=== PATIENT | female | born 1960 | race African-American/Black ===

== ENCOUNTER 2016-05-06 11:28 | Inpatient (IN) | payer OTHER ==
--- NOTE | ~2016-05-06 | EKG ---
PATIENT: ROWAN SALGUERO UNIT #: [id number] Ventricular Rate: 99 BPM Atrial Rate: 99 BPM P-R Interval: 164 ms QRS Duration: 88 ms Q-T Interval: 382 ms QTC Calculation(Bezet): 490 ms P [place]: 23 degrees Calculated R [place]: 138 degrees Calculated T [place]: -18 degrees Diagnosis Line: Normal sinus rhythm Diagnosis Line: Right axis deviation Diagnosis Line: Voltage criteria for left ventricular hypertrophy Diagnosis Line: Cannot rule out Lateral infarct Diagnosis Line: T wave abnormality, consider inferior ischemia Diagnosis Line: T wave abnormality, consider anterior ischemia Diagnosis Line: Abnormal ECG Diagnosis Line: When compared with ECG of 07-MAY-2016 06:35, Diagnosis Line: Premature ventricular complexes are no longer Diagnosis Line: Present Diagnosis Line: Confirmed by CHASE JOSHI MD ([id number]) on 05/14/2016 Diagnosis Line: 4:43:26 AM INTERPRETING MD: MADELYN GRESHAM
--- NOTE | ~2016-05-06 | DS ---
Unit #: [id number] #: [id number] Patient: ROWAN SALGUERO [id number] [facility]. [place] [id number] [facility]. [place], [place] [address] [id number] I MR#: [id number] NAME: ROWAN SALGUERO ROOM: 569 Age: 55 Sex: F Admission Date: 05/06/2016 : 1960 Discharge Date: 05/15/2016 Attending Physician: Jessica Rincon M.D. DISCHARGE SUMMARY DISCHARGE DIAGNOSES Include: 1. Hypertension. 2. Anterior wall ischemia. 3. Severely reduced left ventricular function of 15% to 20%. 4. Acute on chronic systolic heart failure. 5. History of lymphoma and obesity. HOSPITAL COURSE This is a 55-year-old patient who was admitted for wheezing, shortness of breath, and chest tightness. She was found to have acute diastolic heart failure, was diuresed, and had a Lexiscan Cardiolite stress test and a 2D echo. Her stress test was abnormal. Her fluid status was stabilized and then she proceeded with a left heart catheterization. While hospitalized, she had no other consults done. Cardiology followed her. Her EF was found to be 15%, but she did have normal coronaries and no mitral regurgitation or aortic regurgitation. Left heart catheterization dated 05/13/2016, which was performed by Dr. Florez. For her acute on chronic systolic heart failure, she was started on Coreg. Fluid restrictions, daily labs, and daily weights. She was also put on a short course of dobutamine and IV diuretics. DIAGNOSTIC STUDIES IMAGING STUDIES: Include a left heart catheterization, which showed a reduced EF of 15%, normal coronaries, no mitral regurgitation or aortic regurgitation. She had a 2D echo on 05/07/2016, which did indicate that she had [id number] mitral regurgitation, moderate tricuspid regurgitation, pulmonic valvular regurgitation which was mild, RVSP was 51 mmHg, severely reduced systolic function, and LVEF was 10% to 15%. There was also severe global hypokinesis noted in the left ventricle. She had a chest x-ray, single view, on 05/06/2016, which did show [id number] cardiomegaly persistent and slightly increased interstitial infiltrates in the right upper and lower lung. No effusion or dense consolidation was seen and left lung remained well aerated. Repeat chest x-ray, two view, on 05/09/2016 showed improvement of infiltrates in the right lung, persistent cardiomegaly, and trace right effusion. EKG on 05/13/2016 showed normal sinus rhythm with T-wave inversions in both anterior leads and inferior leads. LABORATORY RESULTS: Include sodium 135, potassium 3.8, chloride 99, CO2 Unit #: [id number] #: [id number] Patient: ROWAN SALGUERO of 28, BUN 21, creatinine 0.6, and glucose 93. Magnesium was 2.0. Cholesterol was found to be 146, triglycerides 72, LDL 113, and HDL 19. BNP was 774. Troponins were less than 0.03 x2. INR was 1. WBC 6.7, hemoglobin 14.2, hematocrit 44.4, and platelet count 189. DISCHARGE MEDICATIONS Include Entresto 24/26 mg tablets b.i.d., spironolactone 12.5 mg b.i.d., potassium chloride 20 mEq b.i.d., Coreg 3.125 mg b.i.d., Lasix 40 mg p.o. b.i.d. with an additional 40 mg dose of Lasix if she continues to be short of breath or have any lower extremity swelling, and aspirin 81 daily. Prescriptions were provided for the following: Coreg 3.125 mg b.i.d.; spironolactone 25 mg half tablet orally daily, dispensed 30 tablets; and Entresto 24/26 mg 1 p.o. b.i.d., dispensed 60 tablets. She will be discharged home in stable condition. She was instructed to follow a low-salt heart healthy diet and get plenty of exercise to help with her weight loss. Prescriptions were provided as indicated above. She will need to follow up with Dr. Rincon and appointment has been made for her in 6 weeks. She will need an elective AICD at sometime in the near future and Dr. Rincon has written for a LifeVest when she gets home. Education was provided on medication compliance to take an extra dose of Lasix if she experiences any shortness of breath or swelling to call the office after 2 days of taking an extra dose of Lasix. Dictated by... Robyn [place], BUNG DROPPERShay Porras TD: 05/16/2016 13:27 JOB #: [id number] DISCHARGE SUMMARY Page 1 of 1 X X DISCHARGE SUMMARY
--- NOTE | ~2016-05-06 | CR63 ---
[facility] A Service of [facility] & [facility] RADIOLOGY TEXT RESULTS PATIENT: ROWAN SALGUERO LOCATION: [facility] 569-01 : 59 UNIT #: [id number] AGE: [address]: Jessica Rincon MD SEX: F ORDER DR: [id number] [facility] [address] [facility]. [place], [place] [address] [id number] I MR#: [id number] #: [id number] NAME: ROWAN SALGUERO : 1960 SEX: F STUDY DATE/TIME: 05/09/2016 9:25 UNIT: [facility] ROOM: [facility] STUDY DESCRIPTION: CR Chest 2 View Attending Physician: Jessica Rincon M.D. Ordering Physician: Love Ang A.P.R.N. Primary Care Physician: No Primary Care Physician MEDICAL IMAGING REPORT This report is preliminary unless electronic signature is present EXAM Chest 2 views 05/09/2016 INDICATIONS 55-year-old female with shortness of air that began today. History of lymphoma diagnosed in 2014. Hypertension. Cough and congestion. TECHNIQUE 2 views of the chest compared with 05/06/2016 FINDINGS Eventration or elevation of the right hemidiaphragm unchanged. The heart is enlarged but stable. Interstitial and alveolar opacities in the right lung demonstrate interval improvement compared with the prior study. No new consolidation, effusion or pneumothorax on either side. Probable trace right effusion unchanged. IMPRESSION 1. Improvement of infiltrates in the right lung. Persistent cardiomegaly and trace right effusion. Dictated by... Damon Madrigal M.D. THIS IS AN ELECTRONICALLY VERIFIED REPORT Damon Madrigal M.D. at 05/09/2016 3:04 PM ORLIN/aurora TD: 05/09/2016 14:36 JOB #: [id number] MEDICAL IMAGING REPORT COPY
--- NOTE | ~2016-05-06 | EKG ---
PATIENT: ROWAN SALGUERO UNIT #: [id number] Ventricular Rate: 85 BPM Atrial Rate: 85 BPM P-R Interval: 178 ms QRS Duration: 92 ms Q-T Interval: 424 ms QTC Calculation(Bezet): 504 ms P [place]: 44 degrees Calculated R [place]: 39 degrees Calculated T [place]: -39 degrees Diagnosis Line: Sinus rhythm with occasional Premature ventricular Diagnosis Line: complexes Diagnosis Line: Nonspecific T wave abnormality Diagnosis Line: Prolonged QT Diagnosis Line: Abnormal ECG Diagnosis Line: When compared with ECG of 06-MAY-2016 11:18, Diagnosis Line: Premature ventricular complexes are now Present Diagnosis Line: Minimal criteria for Anterior infarct are no Diagnosis Line: longer Present Diagnosis Line: Nonspecific T wave abnormality, improved in Diagnosis Line: Lateral leads Diagnosis Line: QT has lengthened Diagnosis Line: Confirmed by CHASE JOSHI MD ([id number]) on 05/07/2016 Diagnosis Line: 7:33:00 PM INTERPRETING MD: MADELYN GRESHAM
--- NOTE | ~2016-05-06 | HP ---
Unit #: [id number] #: [id number] Patient: ROWAN SALGUERO [id number] [facility]. [address] [place], [place] [address] [id number] I MR#: [id number] NAME: ROWAN SALGUERO ROOM: 569 Age: 55 Sex: F Admission Date: 05/06/2016 : 1960 Attending Physician: Jessica Rincon M.D. Primary Care Physician: No Primary Care Physician HISTORY AND PHYSICAL HISTORY OF PRESENT ILLNESS This is a 55-year-old -Tongan female purposely known to Dr. Goodman with a past medical history of hypertension not currently on medications. Chronic diastolic congestive heart failure as noted per previous documentation 01/2016. Lymphoma status post chemotherapy at the age of 28 and obesity with a BMI of 40. The patient denies hyperlipidemia, diabetes mellitus or myocardial infarction. She is a lifetime nonsmoker. There is no family history of ischemic heart disease. She presented to the emergency department from her primary care office with complaints of wheezing and shortness of breath. Her shortness of breath has been presence over the last couple of months. She was seen in our office for evaluation. Over the past week she was given a prescription for Lasix but despite this her shortness of breath has continued. She also admits to PND and lower extremity edema. She states the shortness of breath is at rest and exertion. During exertion she does have some mid sternal heaviness. She had chest pain described as heaviness. There is no radiation to the neck, jaw, shoulder or arms. There are no associated symptoms of diaphoresis, nausea, or vomiting. The pain resolves with rest. She denies any dizziness, palpitations or syncope. In the emergency department her temperature was 97.4, pulse 114, respirations 18, blood pressure 148/87, O2 saturation 98% on room air. Initial labs revealed a BNP of 1,465. Renal function was normal. Potassium was low at 3.1. White blood cell count was normal. Troponin was negative x2 sets. EKG revealed sinus rhythm with poor R wave progression into her leads. Chest x-ray revealed some vascular congestion. She was given 40 mg of IV Lasix. PAST MEDICAL HISTORY 1. Chronic diastolic congestive heart failure per documentation 01/2016. 2. Denies previous stress test or cardiac catheterization. 3. Cardiomegaly. 4. Hypertension. 5. Obesity with a BMI of 40. 6. Lymphoma, status post chemotherapy at age 28. 7. Nonsmoker. PAST SURGICAL HISTORY Mediport with removal. MEDICATIONS Furosemide 40 mg p.o. b.i.d.; potassium chloride 20 mEq p.o. daily. Unit #: [id number] #: [id number] Patient: ROWAN SALGUERO ALLERGIES No known drug allergies. SOCIAL HISTORY The patient lives in a private residence. She had a part-time job. She is a lifetime nonsmoker. There are no reports of alcohol or illicit drug use. FAMILY HISTORY Noncontributory for heart disease. REVIEW OF SYSTEMS Twelve point review of systems negative except for details noted above in HPI. The patient admits to some weight loss but is unsure of the amount. She has had some chills but no fever. She admits to a cough, which is nonproductive. PHYSICAL EXAMINATION VITAL SIGNS: Temperature 97.4, pulse 93, blood pressure 159/101. CONSTITUTIONAL: This is a 55-year-old -Tongan female in no acute distress. SKIN: Warm and dry. NECK: Supple. Positive jugular venous distention. No hepatojugular reflux. Normal carotid upstrokes. No carotid bruits auscultated. HEART: S1 and S2. Regular rate and rhythm. No murmurs, rubs or gallops. LUNGS: Bilateral breath sounds of rales in the bases. Respirations even and unlabored. No rhonchi or wheezes. ABDOMEN: Soft, nontender, nondistended. Positive bowel sounds auscultated x4 quadrants. No ascites noted. EXTREMITIES: Bilateral extremities have +2 pitting edema. DP and PT pulses 2+. Capillary refill after three seconds. DIAGNOSTIC STUDIES LABORATORY STUDIES: Blood cell count 5.6, hemoglobin 11.6, hematocrit 36.6, platelets 132. Sodium 139, potassium 3.4, chloride 97, CO2 30, BUN 11, creatinine 0.9, glucose 95, albumin 3.4, AST 49, ALT 31, alk phos 90, BNP 1,465, INR 1.2. Troponin 0.05 and 0.05. IMAGING STUDIES: Chest x-ray reveals vascular congestion and cardiomegaly. CARDIOVASCULAR: Electrocardiogram reveals sinus tachycardia with a ventricular rate of 109 BPM. Low voltage QRS. Nonspecific ST-T wave changes. Poor R wave progression in anterior leads. QTC 401 msec. IMPRESSION 1. Acute on chronic congestive heart failure. 2D echocardiogram pending. 2. Cardiomegaly. 3. History of lymphoma status post chemotherapy. 4. Hypertension, uncontrolled. 5. Obesity with a BMI of 40. 6. Hyperkalemia. 7. Mild anemia. 8. Mild thrombocytopenia. 9. Transaminitis. Unit #: [id number] #: [id number] Patient: ROWAN SALGUERO PLAN 1. The patient presented to the hospital with complaints of shortness of breath and wheezing. She was admitted for acute on chronic congestive heart failure. 2. 2D echocardiogram with Doppler has been ordered to assess LV function and bowels. 3. The patient has been started on IV Bumex and potassium supplements. 4. Her blood pressure is uncontrolled. She will be restarted on Coreg and Cozaar with parameters. 5. She does complain of intermittent chest pain with exertion. Cardiac enzymes are negative. 6. Will trend cardiac enzymes and EKG. 7. Will start aspirin and check fasting lipid profile. 8. The patient will need an ischemic workup once she is diuresed. Dictated by Joanna Meyer APRN for Shay Sanchez TD: 05/07/2016 10:28 JOB #: [id number] CC: [facility] HISTORY AND PHYSICAL X X HISTORY AND PHYSICAL
--- NOTE | ~2016-05-06 | EKG ---
PATIENT: ROWAN SALGUERO UNIT #: [id number] Ventricular Rate: 109 BPM Atrial Rate: 109 BPM P-R Interval: 174 ms QRS Duration: 86 ms Q-T Interval: 298 ms QTC Calculation(Bezet): 401 ms P [place]: 16 degrees Calculated R [place]: 70 degrees Calculated T [place]: -29 degrees Diagnosis Line: Sinus tachycardia Diagnosis Line: Low voltage QRS Diagnosis Line: Cannot rule out Anterior infarct (cited on or Diagnosis Line: before 06-MAY-2016) Diagnosis Line: Abnormal ECG Diagnosis Line: When compared with ECG of 03-FEB-2016 06:27, Diagnosis Line: QRS voltage has decreased Diagnosis Line: Nonspecific T wave abnormality, worse in Lateral Diagnosis Line: leads Diagnosis Line: QT has shortened Diagnosis Line: Confirmed by OMAR CHAN MD ([id number]) on Diagnosis Line: 05/06/2016 3:28:31 PM INTERPRETING MD: ROCIO GRESHAM
--- NOTE | ~2016-05-06 | TH ---
Unit #: [id number] #: [id number] Patient: ROWAN SALGUERO [id number] [address] [address] [id number] I MR#: [id number] NAME: ROWAN SALGUERO : 1960 SEX: F STUDY DATE/TIME: 05/07/2016 UNIT: [facility] ROOM: 569 STUDY DESCRIPTION: Lexiscan stress test - Nuclear Attending Physician: Jessica Rincon M.D. Primary Care Physician: No Primary Care Physician CARDIOLOGY REPORT PROCEDURE PERFORMED Lexiscan Cardiolite stress test - Nuclear portion. PROCEDURE Using technetium 99m-labeled Cardiolite, rest and stress SPECT images were obtained. Multiple SPECT images were obtained in various views, including horizontal and vertical long axis and short axis views of the left ventricle. Images were obtained by gated SPECT method. The patient was administered 10.69 mCi of Cardiolite at rest. The patient was administered 29.5 mCi of Cardiolite after Lexiscan infusion was completed. On the stress images, there is a medium sized area of severely decreased tracer uptake activity involving the anterior wall. The rest images show normal perfusion. Comparing the rest and stress images, there is suspicion for significant stress-induced ischemia involving the anterior wall of the left ventricle. The left ventricular ejection fraction is calculated to be 31%. There is severe global hypokinesis seen. The left ventricular cavity is moderately to severely dilated, both at rest and post stress. CONCLUSION 1. Suspicion for significant ischemia involving the anterior wall of the left ventricle. 2. The left ventricular ejection fraction is calculated to be 31%. 3. There is severe global hypokinesis noted. 4. The left ventricular cavity is moderately to severely dilated, both at rest and post stress. 5. Very abnormal Lexiscan Cardiolite stress test suspicious for severe cardiomyopathy and ischemia involving the LAD territory or multivessel disease. Dictated by... Shay Sanchez/romain TD: 05/08/2016 08:03 JOB #: [id number] Unit #: [id number] #: [id number] Patient: ROWAN SALGUERO CARDIOLOGY REPORT X Jessica Rincon MD <ELECTRONICALLY SIGNED> 09/14/16 [facility] CARDIOLOGY REPORT
--- NOTE | ~2016-05-06 | ST ---
Unit #: [id number] #: [id number] Patient: ROWAN SALGUERO [id number] [address] [address] [id number] I MR#: [id number] NAME: ROWAN SALGUERO : 1960 SEX: F STUDY DATE/TIME: 05/07/2016 UNIT: [facility] ROOM: 569 STUDY DESCRIPTION: Stress Test Attending Physician: Jessica Rincon M.D. Primary Care Physician: No Primary Care Physician CARDIOLOGY REPORT REASON FOR EXAM Shortness of breath and congestive heart failure. DESCRIPTION Baseline EKG shows normal sinus rhythm, rate of 100 beats per minute. Low voltage QRS. Cannot rule out anterior infarct. Nonspecific T wave abnormality. 0.4 mg of Lexiscan was injected per protocol followed by Cardiolite. During the test, the patient denied any complaints of chest pain. She had some mild shortness of breath but essentially no other symptoms. No ST or T wave abnormalities noted during the infusion. There were no arrhythmias noted during the infusion. The test was stopped secondary to protocol completion. IMPRESSION 1. Negative EKG portion of Lexiscan Cardiolite. 2. No ST or T wave changes occurred during the infusion suggestive of ischemia. 3. Mild shortness of breath, otherwise no symptoms reported during the infusion, thus, reported in the recovery period. 4. No arrhythmias were noted. 5. Please correlate with nuclear imaging. Dictated by... Anh LopezRJuaniNJuani for Jessica Rincon M.D. LMW/df TD: 05/07/2016 13:23 JOB #: [id number] Unit #: [id number] #: [id number] Patient: ROWAN SALGUERO CARDIOLOGY REPORT X Love Ang APRN CARDIOLOGY REPORT
--- NOTE | ~2016-05-06 | CR72 ---
[facility] A Service of [facility] & [facility] RADIOLOGY TEXT RESULTS PATIENT: ROWAN SALGUERO [facility] [id number] : [birth year] UNIT #: [id number] AGE: [address]: Jessica Rincon MD SEX: F ORDER DR: [id number] [facility] [address] [facility]. [place], [place] [address] [id number] E MR#: [id number] Acc #: [id number] NAME: ROWAN SALGUERO : 1960 SEX: F STUDY DATE/TIME: 05/06/2016 11:16 UNIT: [facility] ROOM: STUDY DESCRIPTION: CR Chest Single View Portable Attending Physician: Myra Baltazar M.D. Ordering Physician: Myra Baltazar M.D. Primary Care Physician: Primary Care Physician No MEDICAL IMAGING REPORT This report is preliminary unless electronic signature is present EXAM Portable chest 1-view, 05/06/2016 COMPARISON 02/03/2016 HISTORY Short of air, cough and congestion for 1 week. FINDINGS Re-demonstrated mild to moderate cardiomegaly. Persistent and slightly increased interstitial infiltrate in the right upper and lower lung. No effusion or dense consolidation. Left lung remains well aerated. Dictated by... Clayton Estrada M.D. THIS IS AN ELECTRONICALLY VERIFIED REPORT Clayton Estrada M.D. at 05/06/2016 5:03 PM ROXANN/mila TD: 05/06/2016 13:34 JOB #: [id number] MEDICAL IMAGING REPORT COPY
[2016-05-06 11:34] LABS: BASOPHIL% 0.6 % (0-2.5); EOSINOPHIL# 0.1 X10e3 (0-0.7); EOSINOPHIL% 1.9 % (0.0-7.0); HEMATOCRIT 36.6 % (35.0-45.0); HEMOGLOBIN 11.6 gm/dL (12.0-16.0); LYMPHOCYTE# 1.5 X10e3 (1.0-3.5); LYMPHOCYTE% 26.3 % (17.0-45.0); MEAN CELL VOLUME 84.3 FL (83-96); MEAN CORPUSCULAR HEMOGLOBIN 26.8 PG (28-34); MEAN CORPUSCULAR HGB CONC 31.7 g/dL (30-36); MEAN PLATELET VOLUME 10.7 FL (6.5-11.5); MONOCYTE# 0.4 X10e3 (0-1.0); MONOCYTE% 6.6 % (3.0-12.0); NEUTROPHIL# 3.6 X10e3 (1.5-7.1); NEUTROPHIL% 64.6 % (40-75); PLATELET COUNT 132 X10e3 (140-420); RED BLOOD COUNT 4.34 X10e (3.90-5.30); RED CELL DISTRIBUTION WIDTH 17.5 % (11.0-15.5); WHITE BLOOD COUNT 5.6 X10e3 (4.0-10.5)
[2016-05-06 11:35] LABS: DIFF IND NO
[2016-05-06 11:55] LABS: INR 1.2; PROTHROMBIN TIME (PATIENT) 12.5 SECONDS (9.6-11.5)
[2016-05-06 12:04] LABS: ALBUMIN SERUM 3.4 g/dL (3.5-5.0); ALKALINE PHOSPHATASE 90 U/L (32-92); ALT (SGPT) 31 U/L (10-40); AST (SGOT) 49 U/L (10-42); BILIRUBIN, DIRECT 0.6 mg/dL (0.0-0.2); BILIRUBIN,INDIRECT 1.5 mg/dL (0.0-0.9); BILIRUBIN,TOTAL 2.1 mg/dL (0.2-2.0); BLOOD UREA NITROGEN 11 mg/dL (9-23); BUN/CREATININE RATIO 12.22; CALCIUM SERUM 8.2 mg/dL (8.4-10.2); CARBON DIOXIDE 30 mmol/L (22-31); CHLORIDE 97 mmol/L (100-111); CREATININE SERUM 0.9 mg/dL (0.6-1.4); GLOM FILT RATE Estimated ABOVE60 mL/min (>60); GLUCOSE FASTING 95 mg/dL (70-110); POTASSIUM 3.1 mmol/L (3.5-5.1); PROTEIN TOTAL SERUM 6.6 g/dL (6.0-8.3); SODIUM 139 mmol/L (135-145)
[2016-05-06 12:27] LABS: POC - CKMB 3.5 ng/mL (0.0-7.9); POC - TROPONIN <0.05 ng/mL (<=0.05)
[2016-05-06 13:30] LABS: POC - TROPONIN <0.05 ng/mL (<=0.05)
[2016-05-06] MEDS ORDERED: FUROSEMIDE40 MG PO (13:31)
[2016-05-06] MEDS ORDERED: POTASSIUM20 MEQ/15 PO (13:32)
[2016-05-06 22:18] LABS: %MB 4.3 % (0.0-4.0); MB 6.8 ng/ml
[2016-05-07 02:09] LABS: %MB 4.5 % (0.0-4.0); MB 6.5 ng/ml
[2016-05-07 09:17] LABS: HEMATOCRIT 37.5 % (35.0-45.0); HEMOGLOBIN 11.8 gm/dL (12.0-16.0); MEAN CORPUSCULAR HEMOGLOBIN 26.8 PG (28-34); MEAN CORPUSCULAR HGB CONC 31.5 g/dL (30-36); MEAN PLATELET VOLUME 11.2 FL (6.5-11.5); RED BLOOD COUNT 4.41 X10e (3.90-5.30); RED CELL DISTRIBUTION WIDTH 17.2 % (11.0-15.5); WHITE BLOOD COUNT 5.2 X10e3 (4.0-10.5)
[2016-05-07 10:39] LABS: BLOOD UREA NITROGEN 11 mg/dL (9-23); BUN/CREATININE RATIO 13.75; CALCIUM SERUM 8.1 mg/dL (8.4-10.2); CARBON DIOXIDE 31 mmol/L (22-31); CHLORIDE 101 mmol/L (100-111); CHOLESTEROL 146 mg/dL (0-200); CREATININE SERUM 0.8 mg/dL (0.6-1.4); GLOM FILT RATE Estimated ABOVE60 mL/min (>60); GLUCOSE FASTING 85 mg/dL (70-110); HDL CHOLESTEROL 19 mg/dL (35-95); LDL CHOLESTEROL 113 mg/dL (-130); LDL/HDL RATIO 6 RATIO (0-4); MAGNESIUM 1.5 mg/dL (1.6-3.0); POTASSIUM 3.7 mmol/L (3.5-5.1); SODIUM 141 mmol/L (135-145); TRIGLYCERIDES 72 mg/dL (10-160)
[2016-05-08 08:40] LABS: BLOOD UREA NITROGEN 14 mg/dL (9-23); BUN/CREATININE RATIO 15.55; CALCIUM SERUM 8.2 mg/dL (8.4-10.2); CARBON DIOXIDE 32 mmol/L (22-31); CHLORIDE 101 mmol/L (100-111); CREATININE SERUM 0.9 mg/dL (0.6-1.4); GLOM FILT RATE Estimated ABOVE60 mL/min (>60); GLUCOSE FASTING 96 mg/dL (70-110); MAGNESIUM 1.8 mg/dL (1.6-3.0); POTASSIUM 3.6 mmol/L (3.5-5.1); SODIUM 143 mmol/L (135-145)
[2016-05-09 05:32] LABS: HEMATOCRIT 34.8 % (35.0-45.0); MEAN CELL VOLUME 84.5 FL (83-96); MEAN CORPUSCULAR HEMOGLOBIN 26.7 PG (28-34); MEAN CORPUSCULAR HGB CONC 31.6 g/dL (30-36); MEAN PLATELET VOLUME 10.5 FL (6.5-11.5); RED BLOOD COUNT 4.11 X10e (3.90-5.30); WHITE BLOOD COUNT 5.3 X10e3 (4.0-10.5)
[2016-05-09 06:11] LABS: BLOOD UREA NITROGEN 11 mg/dL (9-23); BUN/CREATININE RATIO 13.75; CALCIUM SERUM 9.1 mg/dL (8.4-10.2); CARBON DIOXIDE 34 mmol/L (22-31); CHLORIDE 101 mmol/L (100-111); CREATININE SERUM 0.8 mg/dL (0.6-1.4); GLOM FILT RATE Estimated ABOVE60 mL/min (>60); GLUCOSE FASTING 94 mg/dL (70-110); MAGNESIUM 1.8 mg/dL (1.6-3.0); POTASSIUM 3.6 mmol/L (3.5-5.1); SODIUM 145 mmol/L (135-145)
[2016-05-10 05:57] LABS: BLOOD UREA NITROGEN 9 mg/dL (9-23); BUN/CREATININE RATIO 11.25; CALCIUM SERUM 9.3 mg/dL (8.4-10.2); CARBON DIOXIDE 34 mmol/L (22-31); CHLORIDE 93 mmol/L (100-111); CREATININE SERUM 0.8 mg/dL (0.6-1.4); GLOM FILT RATE Estimated ABOVE60 mL/min (>60); GLUCOSE FASTING 93 mg/dL (70-110); POTASSIUM 3.4 mmol/L (3.5-5.1); SODIUM 136 mmol/L (135-145)
[2016-05-11 08:46] LABS: BLOOD UREA NITROGEN 12 mg/dL (9-23); CALCIUM SERUM 9.7 mg/dL (8.4-10.2); CARBON DIOXIDE 32 mmol/L (22-31); CHLORIDE 96 mmol/L (100-111); CREATININE SERUM 0.8 mg/dL (0.6-1.4); GLOM FILT RATE Estimated ABOVE60 mL/min (>60); GLUCOSE FASTING 105 mg/dL (70-110); POTASSIUM 4.1 mmol/L (3.5-5.1); SODIUM 139 mmol/L (135-145)
[2016-05-12 06:04] LABS: BLOOD UREA NITROGEN 23 mg/dL (9-23); BUN/CREATININE RATIO 28.75; CALCIUM SERUM 9.6 mg/dL (8.4-10.2); CARBON DIOXIDE 32 mmol/L (22-31); CHLORIDE 92 mmol/L (100-111); CREATININE SERUM 0.8 mg/dL (0.6-1.4); GLOM FILT RATE Estimated ABOVE60 mL/min (>60); GLUCOSE FASTING 100 mg/dL (70-110); SODIUM 134 mmol/L (135-145)
[2016-05-13 08:18] LABS: HEMATOCRIT 44.4 % (35.0-45.0); HEMOGLOBIN 14.2 gm/dL (12.0-16.0); MEAN CELL VOLUME 83.8 FL (83-96); MEAN CORPUSCULAR HEMOGLOBIN 26.9 PG (28-34); MEAN CORPUSCULAR HGB CONC 32.1 g/dL (30-36); MEAN PLATELET VOLUME 11.1 FL (6.5-11.5); RED BLOOD COUNT 5.3 X10e (3.90-5.30); RED CELL DISTRIBUTION WIDTH 16.6 % (11.0-15.5); WHITE BLOOD COUNT 6.7 X10e3 (4.0-10.5)
[2016-05-13 09:08] LABS: BLOOD UREA NITROGEN 25 mg/dL (9-23); BUN/CREATININE RATIO 31.25; CALCIUM SERUM 9.2 mg/dL (8.4-10.2); CARBON DIOXIDE 28 mmol/L (22-31); CHLORIDE 96 mmol/L (100-111); CREATININE SERUM 0.8 mg/dL (0.6-1.4); GLOM FILT RATE Estimated ABOVE60 mL/min (>60); GLUCOSE FASTING 100 mg/dL (70-110); MAGNESIUM 2.1 mg/dL (1.6-3.0); POTASSIUM 4.3 mmol/L (3.5-5.1); SODIUM 135 mmol/L (135-145)
[2016-05-13 09:54] LABS: PARTIAL THROMBOPLASTIN TIME 26.6 SECONDS (23.5-31.3); PROTHROMBIN TIME (PATIENT) 10.7 SECONDS (9.6-11.5)
[2016-05-14 07:27] LABS: CREATININE SERUM 0.6 mg/dL (0.6-1.4); GLOM FILT RATE Estimated ABOVE60 mL/min (>60)
[2016-05-15 07:49] LABS: BLOOD UREA NITROGEN 21 mg/dL (9-23); CALCIUM SERUM 8.6 mg/dL (8.4-10.2); CARBON DIOXIDE 28 mmol/L (22-31); CHLORIDE 99 mmol/L (100-111); CREATININE SERUM 0.6 mg/dL (0.6-1.4); GLOM FILT RATE Estimated ABOVE60 mL/min (>60); GLUCOSE FASTING 93 mg/dL (70-110); POTASSIUM 3.8 mmol/L (3.5-5.1); SODIUM 135 mmol/L (135-145)
[2016-05-15] MEDS ORDERED: COREG3.125 MG PO (11:32)
[2016-05-15] MEDS ORDERED: ASPIRIN81 MG PO (11:34)
[2016-05-15] MEDS ORDERED: ENTRESTO 24 MG1 EACH PO (11:37)
[2016-05-15] MEDS ORDERED: ALDACTONE25 MG PO (11:39)
== END 2016-05-15 15:31 | disposition home or self-care (01) | DRG 287 ==
LOC: CED 11:28 → CEDOF 14:20 → C5C 20:25
PROVIDERS: Emergency Medicine; Internal Medicine Cardiovascular Disease; Nurse Practitioner
PROC: B24BZZZ Ultrasonography of Heart with Aorta (ICD-10-PCS; 2016-05-07)
PROC: 4A023N7 Measurement of Cardiac Sampling and Pressure, Left Heart, Percutaneous Approach (ICD-10-PCS; principal; 2016-05-13)
PROC: B211YZZ Fluoroscopy of Multiple Coronary Arteries using Other Contrast (ICD-10-PCS; 2016-05-13)
PROC: B215YZZ Fluoroscopy of Left Heart using Other Contrast (ICD-10-PCS; 2016-05-13)
DX: I11.0 Hypertensive heart disease with heart failure (principal); I42.9 Cardiomyopathy, unspecified; D69.6 Thrombocytopenia, unspecified; Z68.41 Body mass index [BMI] 40.0-44.9, adult; E87.5 Hyperkalemia; I50.33 Acute on chronic diastolic (congestive) heart failure; E66.01 Morbid (severe) obesity due to excess calories; D64.9 Anemia, unspecified; R74.0 Nonspecific elevation of levels of transaminase and lactic acid dehydrogenase [LDH]; I25.9 Chronic ischemic heart disease, unspecified; Z92.21 Personal history of antineoplastic chemotherapy; Z85.72 Personal history of non-Hodgkin lymphomas
CPT/HCPCS: 71010; 71020; 78452; 80048; 80061; 80076; 82550; 82553; 82565; 83735; 83880; 84484; 85025; 85027; 85347; 85610; 85730; 93005; 93017; 93306; 96374; 99291; A9500; C1769; C1887; C1894; J0461; J1250; J1644; J1650; J1940; J2250; J2785; J3010; J3475